=== PATIENT | male | born 1955 | race Caucasian/White ===

== ENCOUNTER 2021-08-26 12:41 | Day surgery (SDC) | payer MEDICARE ==
[~2021-08-26] VITALS: Ht 193 cm; Wt 103.5 kg
[~2021-08-26 12:41] MED LIST: ALBU90OI INH; AMLO5 PO; ASPI325 PO; ATOR20; Alphagan P5 ML BOTHEYES; DORZOPSO BOTHEYES; EYE; FLUSAL2505 IH; HYDACE5 PO; IBUP800 PO; Keflex500 MG PO; LATA.005SO BOTHEYES; METO50 PO; METO50ER PO; NAPR500 PO; OMEP20ER PO; Ocuflox5 ML RIGHTEYE; POTA10T PO; POTBIC25; ROSU10TA PO; Vitamin B Comple1 EA PO
--- NOTE | 2021-08-26 14:08 | NUR ---
08/26/21 Vianca Leal VITALS TAKEN EVERY 2 MINUTES THROUGHOUT THE PROCEDURE, MONITOR PRINTS ONLY EVERY 5 MINUTES AND CANNOT BE CHANGED PER BIOMED. PT STABLE THROUGH OUT THE PROCEDURE.
== END 2021-08-26 14:15 | disposition home or self-care (01) ==
LOC: ORSCSDS 12:41
PROVIDERS: Internal Medicine Gastroenterology
PROC: 0DBH8ZX Excision of Cecum, Via Natural or Artificial Opening Endoscopic, Diagnostic (ICD-10-PCS; principal; 2021-08-26 14:15)
PROC: 0DBM8ZX Excision of Descending Colon, Via Natural or Artificial Opening Endoscopic, Diagnostic (ICD-10-PCS; principal; 2021-08-26 14:15)
DX: Z12.11 Encounter for screening for malignant neoplasm of colon (principal); Z86.010 Personal history of colon polyps; K21.9 Gastro-esophageal reflux disease without esophagitis; D12.0 Benign neoplasm of cecum; D12.4 Benign neoplasm of descending colon; K64.8 Other hemorrhoids; Z87.891 Personal history of nicotine dependence; Z79.899 Other long term (current) drug therapy
CPT/HCPCS: 88305; J2704; J7120

== ENCOUNTER 2021-09-02 08:28 | Day surgery (SDC) | payer MEDICARE ==
[~2021-09-02] VITALS: Ht 192 cm; Wt 107.8 kg
--- NOTE | 2021-09-02 09:34 | NUR ---
Ambulatory in Day Surgery History, Chart, Medications and Allergies reviewed before start of procedure.Patient confirms NPO status and agrees with scheduled surgery. Patient reports completing Chlorhexadine shower X2 prior to admission to hospital.Surgical site prepped with 2% Chlorhexidine cloth wipe. Lungs clear T/O to Auscultation.
--- NOTE | 2021-09-02 12:23 | NUR ---
PT AWAKE AND ORIENTED, ASKING FOR FLUIDS, AT BEDSIDE, INCISIONS WITH DURABOND IN PLACE X3 CDI. PT DENIES PAIN OR NAUSEA, PROVIDED FOOD AND FLUID.
--- NOTE | 2021-09-02 13:00 | NUR ---
REMOVED BOTH IVS, SITES CLEAR WITH CATHS INTACT. Discharge instructions reviewed with patient. Patient verbalizes understanding. Copy given to patient to take home. INCISIONS REMAIN CDI. Patient States Post-Procedure ride home has been arranged. Discharged via wheelchair to private car for ride home. MIRIAM RETURNED TO PATIENT.
== END 2021-09-03 23:27 | disposition home or self-care (01) ==
LOC: ORSCMMR 08:28 → ORD 10:00 → ORSCMMR 09-03 23:27
PROVIDERS: Surgery
PROC: 0YU64JZ Supplement Left Inguinal Region with Synthetic Substitute, Percutaneous Endoscopic Approach (ICD-10-PCS; principal; 2021-09-02 10:00)
PROC: 8E0W4CZ Robotic Assisted Procedure of Trunk Region, Percutaneous Endoscopic Approach (ICD-10-PCS; principal; 2021-09-02 10:00)
DX: K40.90 Unilateral inguinal hernia, without obstruction or gangrene, not specified as recurrent (principal); I10 Essential (primary) hypertension; E78.5 Hyperlipidemia, unspecified; J44.9 Chronic obstructive pulmonary disease, unspecified; Z87.891 Personal history of nicotine dependence; K21.9 Gastro-esophageal reflux disease without esophagitis; Z79.899 Other long term (current) drug therapy
CPT/HCPCS: 49650; S2900; A9270; C1781; J0690; J1100; J1885; J2250; J2405; J2704; J3010; J7120